=== PATIENT | male | born 1990 | race Caucasian/White ===

== ENCOUNTER 2017-10-22 03:04 | Emergency (ER) | payer OTHER ==
--- NOTE | 2017-10-22 03:07 | EDPHY ---
H & P HPI/ROS: HPI CHIEF COMPLAINT: Cough, postnasal drip, thick secretion, sick x1 week HISTORY OF PRESENT ILLNESS: Patient very pleasant 27-year-old male he is otherwise healthy denies having any significant medical history does not take any daily medications he presents emergency room with 1 week of viral type illness. He states he thinks he has had the flu for the past week. Presents emergency room comes he has been coughing up very thick secretions. He states schwartz in nature. No blood. States he thinks most of it is coming from postnasal drip and sinus congestion. He has been taking some Robitussin. He denies any chest pain. Denies vomiting. Does state he has had chills and fever. This been on for week but got worse tonight. Past Medical History: Denies medical history Past Surgical History: Denies surgical history Social History: Denies daily use drugs alcohol tobacco Family History: Noncontributory ROS REVIEW OF SYSTEMS: A comprehensive 10 point review of systems is otherwise negative aside from elements mentioned in the history of present illness. Exam Constitutional appears well nontoxic no acute distress, triage nursing summary reviewed, vital signs reviewed, awake/alert. Eyes normal conjunctivae and sclera, EOMI, PERRLA. HENT posterior pharynx is mildly erythematous, postnasal drip, no significant exudate or swelling, normal inspection, atraumatic, moist mucus membranes, no epistaxis, neck supple/ no meningismus, no raccoon eyes. Respiratory faint wheezing bilaterally, bronchitic sounding cough Cardiovascular rate normal, regular rhythm, no murmur, no edema, distal pulses normal. Gastrointestinal soft, non-tender, no rebound, no guarding, normal bowel sounds, no distension, no pulsatile mass. Genitourinary no CVA tenderness. Musculoskeletal no midline vertebral tenderness, full range of motion, no calf swelling, no tenderness of extremities, no meningismus, good pulses, neurovascularly intact. Skin pink, warm, & dry, no rash, skin atraumatic. Neurologic awake, alert and oriented x 3, AAOx3, moves all 4 extremities equally, motor intact, sensory intact, CN II-XII intact, normal cerebellar, normal vision, normal speech. Psychiatric normal mood/affect. Heme/Lymph/Immune no lymphadenopathy. Differential Diagnosis: Includes but is not limited to in a particular order upper respiratory tract infection, viral syndrome, influenza, pneumonia, viral syndrome wall RSV Medical Decision Making: Plan for this patient DuoNeb breathing treatment, azithromycin 500 mg, Decadron 8 mg, Mucinex. Re-evaluate Re-evaluation: ED x-ray chest two view: Negative for focal pneumonia acute cardiopulmonary disease. Image interpreted myself. 0435: X-ray shows no focal pneumonia. Influenza and RSV test are negative. Patient's vital signs are stable. No hypoxia no respiratory distress. He has upper respiratory tract type infection symptoms on exam. I prescribed albuterol inhaler, azithromycin, Decadron and Mucinex. Encourage large amounts of fluids. Return emergency room if there is worsening symptoms questions or concerns. Source: Patient Constitutional: Initial Vital Signs Temperature (C) 36.6 C 10/22/17 03:07 Heart Rate 75 10/22/17 03:07 Respiratory Rate 18 10/22/17 03:07 Blood Pressure 165/89 H 10/22/17 03:07 O2 Sat (%) 95 10/22/17 03:07 O2 Delivery Mode Room Air Allergies/Adverse Reactions: No Known Allergies Allergy (Unverified 07/24/10 12:43) Home Medications: Medication Instructions Recorded AZITHROMYCIN [Z-PACK] 250 mg PO DAILY #6 tab 10/22/17 Albuterol [Proventil Inhaler HFA 1 - 2 puffs IH Q4H #1 mdi 10/22/17 (*)] Dexamethasone [Decadron 4 MG (*)] 4 mg PO DAILY #4 tab 10/22/17 guaiFENesin [Guaifenesin ER] 600 mg PO BID #14 tab.er.12h 10/22/17 Medical Decision Making - Data Points Laboratory Results: 10/22/17 03:14 Nasal Influenza A PCR NEGATIVE FOR FLU A (NEGATIVE) Nasal Influenza B PCR NEGATIVE FOR FLU B (NEGATIVE) RSV (PCR) NEGATIVE FOR RSV (NEGATIVE) Medications Given: Discontinued Medications Albuterol/Ipratropium (Duoneb) 3 ml IH EDNOW ONE Stop: 10/22/17 03:19 Last Admin: 10/22/17 03:22 Dose: 3 ml Azithromycin (Zithromax) 500 mg PO EDNOW ONE PRN Reason: Protocol Stop: 10/22/17 03:20 Last Admin: 10/22/17 03:27 Dose: 500 mg Dexamethasone (Decadron) 8 mg PO EDNOW ONE Stop: 02/12/18 03:19 Last Admin: 10/22/17 03:27 Dose: 8 mg Guaifenesin (Mucinex) 1,200 mg PO EDNOW ONE Stop: 10/22/17 03:31 Last Admin: 10/22/17 03:29 Dose: 1,200 mg Departure - Departure Disposition: Home, Routine, Self-Care Clinical Impression: URI (upper respiratory infection) Qualifiers: URI type: unspecified viral URI Qualified Code(s): J06.9 - Acute upper respiratory infection, unspecified Condition: Good Instructions: Upper Respiratory Infection (ED) Additional Instructions: 1. Drink lots of fluids stay well-hydrated. 2. Return emergency room if you have worsening symptoms includes high fever, trouble breathing vomiting questions or concerns 3. Antibiotic as prescribed Referrals: Pete Jean MD [Primary Care Provider] - As per Instructions Prescriptions: Albuterol [Proventil Inhaler HFA (*)] 1 - 2 puffs IH Q4H #1 mdi AZITHROMYCIN [Z-PACK] 250 mg PO DAILY #6 tab Dexamethasone [Decadron 4 MG (*)] 4 mg PO DAILY #4 tab guaiFENesin [Guaifenesin ER] 600 mg PO BID #14 tab.er.12h
[2017-10-22 03:10] VITALS: O2SAT 95
[2017-10-22] MEDS ORDERED: IPRATROPIUM/ALBUTEROL 3 ML DEYVIAL ONE (03:18)
[2017-10-22] MEDS ORDERED: IPRATROPIUM/ALBUTEROL 3 ML DEYVIAL IH ONE (03:18)
[2017-10-22] MEDS ORDERED: DEXAMETHASONE 4 MG TAB PO ONE (03:18)
[2017-10-22] MEDS ORDERED: AZITHROMYCIN 250 MG TAB PO ONE (03:19)
[2017-10-22] MEDS ORDERED: guaiFENesin 600 MG TAB.ER PO ONE (03:30)
[2017-10-22 04:34] VITALS: BP 153/93; PULSE 77; RESP 20; TEMP 98.1
== END 2017-10-22 04:37 | disposition home or self-care (01) ==
DX: J06.9 Acute upper respiratory infection, unspecified (principal)

== ENCOUNTER 2018-07-27 05:17 | Emergency (ER) | payer OTHER ==
--- NOTE | 2018-07-27 05:36 | EDPHY ---
H & P Stated Complaint: fever for 4 days Time Seen by Provider: 07/27/18 05:27 HPI/ROS: Chief Complaint: Fever, congestion HPI: 28-year-old male presenting with 3 days of fever, congestion, general malaise, some nausea no vomiting. Dry nonproductive cough. Patient states he has been taking Mucinex and ibuprofen with little relief. He measured his temperature a couple days ago when O2. No headache. No body aches. He has had some mild left ear pain. No discharge. Also having a lot of come nasal congestion and discharge. ROS: 10 systems were reviewed and were negative except those elements noted in the HPI. Social History: No smoking, no alcohol, no recreational drug use Family History: non-contributory Physical Exam: Gen: Awake, Alert, No Distress HEENT: Nose: no rhinorrhea Eyes: PERRLA, EOMI Mouth: Moist mucosa, moderate oropharyngeal exudate and erythema without edema Neck: Supple, no JVD Chest: nontender, lungs clear to auscultation Heart: S1, S2 normal, no murmur Abd: Soft, non-tender, no guarding Back: no CVA tenderness, no midline tenderness Ext: no edema, non-tender Skin: no rash Neuro: CN II-XII intact, Sensation grossly intact, Strength 5/5 in bilateral upper and lower extremities - Personal History Current Tetanus/Diphtheria Vaccine: Yes Current Tetanus Diphtheria and Acellular Pertussis (TDAP): Yes - Medical/Surgical History Hx Asthma: No Hx Chronic Respiratory Disease: No Hx Diabetes: No Hx Cardiac Disease: No Hx Renal Disease: No Hx Cirrhosis: No Hx Alcoholism: No Hx HIV/AIDS: No Hx Splenectomy or Spleen Trauma: No Other PMH: Ortho sx - Social History Smoking Status: Never smoked Constitutional: Initial Vital Signs Temperature (C) 37.9 C 07/27/18 05:18 Heart Rate 115 H 07/27/18 05:18 Respiratory Rate 16 07/27/18 05:18 Blood Pressure 149/95 H 07/27/18 05:18 O2 Sat (%) 92 07/27/18 05:18 O2 Delivery Mode Room Air Allergies/Adverse Reactions: adhesive Allergy (Verified 07/27/18 05:21) Home Medications: Medication Instructions Recorded NK [No Known Home Meds] 07/27/18 Medical Decision Making ED Course/Re-evaluation: Rapid strep is negative. Symptoms are consistent with viral URI. He has been counseled regarding alternating acetaminophen with ibuprofen every 4 hr for fevers, chills, aches or pains. He can continue taking over counter cold remedies, follow up with primary care in 3-4 days if symptoms are not improving. - Data Points Laboratory Results: 07/27/18 07/27/18 Unknown 05:30 Group A Strep Screen NEGATIVE (NEGATIVE) Group A Strep DNA Pending Departure - Departure Disposition: Home, Routine, Self-Care Clinical Impression: Viral upper respiratory illness Condition: Good Instructions: Upper Respiratory Infection (ED) Additional Instructions: Alternate acetaminophen (1000 mg) with ibuprofen (400 mg) every 4 hours as needed for fevers, chills, aches or pain. You may take [id number] cold remedies if you find them helpful. Follow up with primary care physician in 3-4 days if symptoms are not improving. Return to the emergency department for high uncontrolled fevers, worsening cough , shortness of breath, uncontrolled nausea or vomiting, or any other concerns. Referrals: Pete Jean MD [Primary Care Provider] - As per Instructions
[2018-07-27 06:21] VITALS: BP 133/76
== END 2018-07-27 06:17 | disposition home or self-care (01) ==
DX: J06.9 Acute upper respiratory infection, unspecified (principal); H92.02 Otalgia, left ear

== ENCOUNTER 2018-12-17 16:55 | Emergency (ER) | payer OTHER ==
--- NOTE | 2018-12-17 18:46 | EDPHY ---
H & P Stated Complaint: R sided numbness Time Seen by Provider: 12/17/18 18:03 HPI/ROS: CHIEF COMPLAINT: Right-sided paresthesias HISTORY OF PRESENT ILLNESS: The patient presents the ED with right-sided paresthesias and a mild headache. 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 He has experienced these type of symptoms in the past. The patient is followed by [facility]. He has been getting MRIs every 2 years. The patient denies any history of fall or trauma. He currently complains of a mild headache. He recently started taking medications for blood pressure control. The patient contacted his primary care provider who referred him to the emergency department. The patient denies any neck pain, fever, cough or congestion. REVIEW OF SYSTEMS: A comprehensive 10 point review of systems is otherwise negative aside from elements mentioned in the history of present illness. Source: Patient Exam Limitations: No limitations - Personal History Current Tetanus/Diphtheria Vaccine: Yes Current Tetanus Diphtheria and Acellular Pertussis (TDAP): Yes - Medical/Surgical History Hx Asthma: No Hx Chronic Respiratory Disease: No Hx Diabetes: No Hx Cardiac Disease: No Hx Renal Disease: No Hx Cirrhosis: No Hx Alcoholism: No Hx HIV/AIDS: No Hx Splenectomy or Spleen Trauma: No Other PMH: pontine cavernous malformation, Ortho sx - Social History Smoking Status: Never smoked - Physical Exam Exam: General Appearance: Alert, no distress Eyes: Pupils equal and round no pallor or injection ENT, Mouth: Mucous membranes moist Respiratory: There are no retractions, lungs are clear to auscultation Cardiovascular: Regular rate and rhythm Gastrointestinal: Abdomen is soft and nontender, no masses, bowel sounds normal Neurological: A&O, normal motor function, normal sensory exam, normal cranial nerves Skin: Warm and dry, no rashes Musculoskeletal: Neck is supple nontender Extremities: symmetrical, full range of motion Psychiatric: Patient is oriented X 3, there is no agitation Constitutional: Initial Vital Signs Temperature (C) 36.6 C 12/17/18 17:12 Heart Rate 72 12/17/18 17:12 Respiratory Rate 16 12/17/18 17:12 Blood Pressure 148/90 H 12/17/18 17:12 O2 Sat (%) 97 12/17/18 17:12 O2 Delivery Mode Room Air Allergies/Adverse Reactions: adhesive Allergy (Verified 12/17/18 17:11) Home Medications: Medication Instructions Recorded Benicar 12/17/18 Magnesium 12/17/18 Melatonin 12/17/18 Medical Decision Making - Diagnostics Imaging Results: Imaging Impressions Head CT 12/17/18 18:17 Impression: 1. The density in the left annamaria is consistent with a vascular malformation. There is no mass effect to suggest acute hemorrhage, although without prior images for comparison, it is impossible to exclude a small acute hemorrhage. 2. Complete opacification of the left maxillary sinus, possibly associated with hemorrhage. Results discussed with Dr. Andrzej Chavez at 6:34 PM. General information for patients regarding this examination can be found at [email or web address]. If you have questions or comments about this report, please contact me at [phone] (hospital) or [phone] (cell). ED Course/Re-evaluation: The patient presents to the emergency department with complaints of headache and right-sided paresthesias. The patient has a history of an inoperable pontine AVM. The patient was taken for noncontrast head CT scan which demonstrates no evidence of an acute hemorrhage. He does have opacification of the left maxillary sinus. I discussed the case with Dr. Jovel from Neurosurgery who recommended noncontrast head CT scan only. If that study was negative the patient can be discharged home and follow up with his regular neurosurgeon at [facility]. Departure - Departure Disposition: Home, Routine, Self-Care Clinical Impression: Paresthesia, Headache Condition: Good Instructions: Acute Headache (ED) Additional Instructions: 1. Your CT scan demonstrates no evidence of acute hemorrhage. 2. Please return to the ED for severe headache, markedly worsening neurologic symptoms or other concerns. 3. Please schedule a follow-up appointment with [facility] this week. Referrals: Franky Reyes MD [Medical Doctor] - As per Instructions
[2018-12-17 19:07] VITALS: BP 153/94
== END 2018-12-17 19:06 | disposition home or self-care (01) ==
DX: R20.2 Paresthesia of skin (principal); R51 Headache; Q28.2 Arteriovenous malformation of cerebral vessels; R93.0 Abnormal findings on diagnostic imaging of skull and head, not elsewhere classified